=== PATIENT | female | born 1985 | race Caucasian/White ===

== ENCOUNTER 2018-07-23 08:12 | Emergency (ER) | payer BC ==
[~2018-07-23] VITALS: Ht 160 cm; Wt 90.9 kg
[2018-07-23 08:22] VITALS: Ht 160 cm; Wt 90.9 kg
[2018-07-23] MEDS ORDERED: BUPROPION HCL100 MG PO (08:25)
[2018-07-23] MEDS ORDERED: ZOLOFT25 MG PO (08:25)
[2018-07-23 08:27] LABS: BASOPHILS 0.4 % (0-2); EOSINOPHILS 2.6 % (0-7); HEMATOCRIT 40.1 % (36.0-48.0); HEMOGLOBIN 13.2 g/dL (12-16); IMMATURE GRANULOCYTES 0.4 % (0-5); MCH 27.6 pg (26.0-34.0); MCHC 32.9 g/dL (31.0-37.0); MCV 83.9 fL (80.0-100.0); MEAN PLATELET VOLUME 10.1 fL (7.4-10.4); MONOCYTES 7.2 % (2-11); NEUTROPHILS 54.4 % (40-80); PLATELET COUNT 360 10x3/uL (130-400); RBC 4.78 10x6/uL (4.00-5.40); RDW 13.4 % (11.5-14.5); WBC 12.8 10x3/uL (4.8-10.8)
[2018-07-23] MEDS ORDERED: GLUCOPHAGE500 MG PO (08:27)
[2018-07-23] MEDS ORDERED: LISINOPRIL/HCTZ PO (08:27)
[2018-07-23 08:33] LABS: COLOR YELLOW (YELLOW)
[2018-07-23 08:34] LABS: APPEARANCE CLEAR (CLEAR); BILIRUBIN NEGATIVE (NEGATIVE); EPITHELIAL CELLS 0-5 /hpf (0-5); GLUCOSE NEGATIVE (NEGATIVE); KETONE NEGATIVE (NEGATIVE); NITRITE NEGATIVE (NEGATIVE); PROTEIN NEGATIVE (NEGATIVE); RED CELLS - URINE 0-5 /hpf (0-5); UROBILINOGEN NORMAL (NORMAL); WHITE CELLS - URINE NSEEN /hpf (0-5)
[2018-07-23 08:45] LABS: HCG SERUM NEGATIVE (NEGATIVE)
[2018-07-23 08:47] LABS: ALBUMIN 3.7 g/dL (3.4-5.0); ALKALINE PHOSPHATASE 92 U/L (46-116); ALT (SGPT) 31 U/L (10-68); AMYLASE - SERUM 33 U/L (25-115); BILIRUBIN - TOTAL 0.25 mg/dL (0.2-1.3); CALC OSMOLALITY 278 mosm/kg (275-300); CARBON DIOXIDE 28.8 mmol/L (21.0-32.0); CHLORIDE - SERUM 100 mmol/L (98-107); CREATININE - SERUM 0.9 mg/dL (0.6-1.3); GLUCOSE 131 mg/dL (74-106); LIPASE 131 U/L (73-393); POTASSIUM - SERUM 3.4 mmol/L (3.5-5.1); PROTEIN - SERUM 7.7 g/dL (6.4-8.2); SODIUM 139 mmol/L (136-145); UREA NITROGEN 9 mg/dL (7-18); eGFR NON AFRICAN AMERICAN 75 mL/min (90-120)
[2018-07-23] MEDS ORDERED: OXYCODONE-APAP1 T10 PO (09:26)
[2018-07-23] MEDS ORDERED: PHENERGAN25 M1 PO (09:26)
[2018-07-23 09:58] VITALS: BP 144/80
== END 2018-07-23 10:00 | disposition home or self-care (01) ==
LOC: D.ER 08:12
PROVIDERS: Emergency Medicine
DX: K80.50 Calculus of bile duct without cholangitis or cholecystitis without obstruction (principal); E11.9 Type 2 diabetes mellitus without complications; I10 Essential (primary) hypertension

== ENCOUNTER → 2018-07-24 12:40 | Outpatient (CLI) | payer BC ==
[2018-07-23 08:22] VITALS: BMI 35.5
[~2018-07-24 12:40] MED LIST: BUPROPION HCL100 MG PO; GLUCOPHAGE500 MG PO; LISINOPRIL/HCTZ PO; OXYCODONE-APAP1 T10 PO; PHENERGAN25 M1 PO; ZOLOFT25 MG PO
== END | disposition home or self-care (01) ==
LOC: D.US 12:40
DX: R10.11 Right upper quadrant pain (principal)

== ENCOUNTER 2018-08-29 05:50 | Day surgery (SDC) | payer BC ==
[2018-08-28 09:53] LABS: BASOPHILS 0.5 % (0-2); EOSINOPHILS 3.9 % (0-7); HEMOGLOBIN 13.4 g/dL (12-16); IMMATURE GRANULOCYTES 0.3 % (0-5); LYMPHOCYTES 27.5 % (15-50); MCH 27.4 pg (26.0-34.0); MCHC 32.7 g/dL (31.0-37.0); MCV 83.8 fL (80.0-100.0); MEAN PLATELET VOLUME 9.9 fL (7.4-10.4); MONOCYTES 6.3 % (2-11); NEUTROPHILS 61.5 % (40-80); PLATELET COUNT 331 10x3/uL (130-400); RBC 4.89 10x6/uL (4.00-5.40); RDW 13.5 % (11.5-14.5); WBC 13.2 10x3/uL (4.8-10.8)
[2018-08-28 10:12] LABS: CALC OSMOLALITY 281 mosm/kg (275-300); CALCIUM 8.7 mg/dL (8.5-10.1); CARBON DIOXIDE 30.4 mmol/L (21.0-32.0); CHLORIDE - SERUM 100 mmol/L (98-107); CREATININE - SERUM 0.9 mg/dL (0.6-1.3); GLUCOSE 147 mg/dL (74-106); POTASSIUM - SERUM 3.4 mmol/L (3.5-5.1); SODIUM 139 mmol/L (136-145); UREA NITROGEN 14 mg/dL (7-18); eGFR NON AFRICAN AMERICAN 75 mL/min (90-120)
[~2018-08-29] VITALS: Ht 162.6 cm; Wt 91.2 kg
[~2018-08-29 05:50] MED LIST changes: +ADIPEX-P37.5 MG PO; +PRINZIDE 20/12.1 TA1 PO; +ZANAFLEX4 MG PO
[2018-08-29 06:18] VITALS: BP 122/79; Ht 162.6 cm; Wt 91.2 kg
[2018-08-29 06:56] LABS: HCG URINE NEGATIVE (NEGATIVE)
[2018-08-29] MEDS ORDERED: DILAUDID2 MG PO (08:44)
--- NOTE | 2018-08-29 09:33 | NUR ---
0925 ICE CAP PROVIDED, FL DIET LEFT AT BEDSIDE, TIME FRAME FOR STAY GIVEN CRITERIA FOR DISCHARGE GIVEN.
--- NOTE | 2018-08-31 10:44 | OP ---
PATIENT NAME: EUGENIA BOUCHER MEDICAL RECORD: [id number] :81 LOCATION:[facility] ADMISSION DATE: SURGEON: HILARIO PUGH MD DATE OF OPERATION: 08/29/2018 PREOPERATIVE DIAGNOSES: 1. Gallstones. 2. Diabetes mellitus. 3. Hypertension. POSTOPERATIVE DIAGNOSES: 1. Gallstones. 2. Diabetes mellitus. 3. Hypertension. PROCEDURE: Laparoscopic cholecystectomy. SURGEON: Hilario Pugh MD SCRAP DROP OPERATOR: Kisha Garcia APRN REPORT OF PROCEDURE: The patient's abdomen was prepped and draped in sterile fashion. A cutdown was made on the superior aspect of the umbilicus. The 0 Vicryls were placed in the fascia bilaterally and the fascia was incised with a 15-blade. I then bluntly entered the peritoneal cavity and placed a 12-mm Tadeo port. Under direct visualization, a 5-mm trocar was placed in the epigastrium and 2 more 5-mm trocars were placed in the right subcostal region. The gallbladder was grasped and elevated. There were no inflammatory changes present, but there were gallstones visible. The cystic artery and cystic duct were dissected free and I had my critical view of safety. These were clipped proximally and distally and ligated in a standard fashion. The gallbladder was then taken off the liver bed using electrocautery and placed into an EndoCatch bag. Any bleeding from the liver bed was then treated with electrocautery. We irrigated out the right upper quadrant and assured there was no sign of any bleeding or bile leakage. At this point, the ports and insufflation were then removed and the gallbladder was taken out through the umbilicus. The umbilical fascia was closed with interrupted 0 Vicryls times 3. The wounds were irrigated out with normal saline and infused with 10 mL of 0.25% Marcaine with epinephrine. The skin incisions were closed with subcutaneous 5-0 Monocryl and dressed appropriately. COMPLICATIONS: None. CONDITION: Stable. ANESTHESIA: General endotracheal and local. BLOOD LOSS: Minimal. TRANSINT:[id number] Voice Confirmation ID: [id number] DOCUMENT ID: [id number] cc: Rhett Pool [id number] OPERATIVE REPORT [id number] EUGENIA BOUCHER HILARIO PUGH MD at 1044 CC: RHETT POOL APN [id number] DICTATION DATE: 08/29/18 0848 DRAPERY WORKER: 08/29/18 0918 [facility] 08/29/18 [facility] [address] [place] [address]
== END 2018-08-29 11:00 | disposition home or self-care (01) ==
LOC: D.OPS 05:50 → D.PAN 08:00 → D.OPS 11:00
PROVIDERS: Surgery
DX: K80.20 Calculus of gallbladder without cholecystitis without obstruction (principal); I10 Essential (primary) hypertension; E11.9 Type 2 diabetes mellitus without complications

== ENCOUNTER 2019-07-09 13:05 | Emergency (ER) | payer BC ==
[~2019-07-09] VITALS: Ht 162.6 cm; Wt 90.9 kg
[~2019-07-09 13:05] MED LIST changes: +DILAUDID2 MG PO
[2019-07-09 13:11] VITALS: Ht 162.6 cm; Wt 90.9 kg
[2019-07-09] MEDS ORDERED: RANITIDINE HCL150 M1 PO (13:54)
[2019-07-09] MEDS ORDERED: CLARITIN 10 MG10 MG PO (13:59)
[2019-07-09 14:03] VITALS: BP 136/97
== END 2019-07-09 14:00 | disposition home or self-care (01) ==
LOC: D.ER 13:05
DX: T78.1XXA Other adverse food reactions, not elsewhere classified, initial encounter (principal); I10 Essential (primary) hypertension; E11.9 Type 2 diabetes mellitus without complications; Z79.84 Long term (current) use of oral hypoglycemic drugs

== ENCOUNTER → 2019-11-23 13:33 | Outpatient (CLI) | payer BC ==
[2019-07-09 13:11] VITALS: BMI 34.4
[~2019-11-23 13:33] MED LIST changes: +CLARITIN 10 MG10 MG PO; +RANITIDINE HCL150 M1 PO
== END | disposition home or self-care (01) ==
LOC: D.LAB 13:33
PROVIDERS: ATTEND Emergency Medicine
DX: R76.12 Nonspecific reaction to cell mediated immunity measurement of gamma interferon antigen response without active tuberculosis (principal)